=== PATIENT | male | born 1970 | race Caucasian/White ===

== ENCOUNTER 2020-05-02 12:16 | Emergency (ER) | payer OTHER ==
[~2020-05-02] VITALS: Ht 177.8 cm; Wt 124.7 kg
[2020-05-02] MEDS ORDERED: cloNIDine HCL 0.1 MG TAB PO ONE (12:45)
[2020-05-02 13:46] LABS: Eosinophils # (auto) 0.2 10 ^3/uL (0-0.8); Hemoglobin 18.3 g/dL (13.5-17.5); Nucleated Red Blood Cells % 0.2 %; White Blood Cell 7.1 10^3/uL (4.4-10.8)
[2020-05-02 13:48] LABS: Basophils # (auto) 0.1 10 ^3/uL (0-0.2); Basophils % (auto) 0.9 % (0.0-2.0); Hematocrit 53.6 % (41.0-53.0); Lymphocytes # (auto) 1.4 10 ^3/uL (0.4-5.4); Lymphocytes % (auto) 19.9 % (10.0-50.0); Mean Corpuscular Hemoglobin 28.7 pg (28.0-32.0); Mean Corpuscular Hgb Conc. 34.1 g/dL (32.0-36.0); Mean Corpuscular Volume 84.3 fL (80.0-100.0); Monocytes # (auto) 0.6 10 ^3/uL (0-1.3); Monocytes % (auto) 8.1 % (0.0-12.0); Neutrophils # (auto) 4.9 10 ^3/uL (1.6-8.6); Neutrophils % (auto) 68.1 % (37.0-80.0); Platelet Count (auto) 148 10^3/uL (140-450); Red Blood Cells 6.36 10^6/uL (4.5-5.90); Red Cell Distribution Width 14.2 % (11.8-14.3)
[2020-05-02 13:56] LABS: INR 1.11 (0.9-1.15); Partial Thromboplastin Time 30.7 sec (23.64-32.05)
[2020-05-02 13:59] LABS: Albumin 3.9 g/dL (3.4-5.0); Calcium 9.1 mg/dL (8.5-10.1); Magnesium 2.6 mg/dL (1.6-2.6); Potassium 4.2 mmol/L (3.5-5.1)
[2020-05-02 14:07] LABS: BUN/Creatinine Ratio 13.9; Bilirubin, Total 0.9 mg/dL (0.2-1.0); Total Protein 7.5 g/dL (6.4-8.2)
== END 2020-05-02 15:48 | disposition home or self-care (01) ==
LOC: ER 12:16 → EDBD 12:16 → ER 15:48
DX: I16.0 Hypertensive urgency (principal)
CPT/HCPCS: 36415; 71045; 80053; 83735; 83880; 84443; 84484; 85025; 85379; 85610; 85730

== ENCOUNTER 2023-12-05 18:05 | Inpatient (IN) | payer OTHER ==
[~2023-12-05] VITALS: Ht 185.4 cm; Wt 141.7 kg
[2023-12-05 18:05] VITALS: PULSE 99; RESP 22; O2SAT 99
[2023-12-05] MEDS: LORazepam 2MG/ML-1ML VIAL IV ONE (18:30)
[2023-12-05] MEDS: LORazepam 2MG/ML-1ML VIAL ONE (18:44)
[2023-12-05] MEDS: ETOMIDATE (2MG/ML) 20ML VIAL IV ONE ×2 (18:44→19:08)
[2023-12-05] MEDS: ROCURONIUM 10MG/ML 10ML VIAL IV ONE ×3 (18:45→21:27)
[2023-12-05 18:48] LABS: Basophils # (auto) 0 10 ^3/uL (0-0.2); Basophils % (auto) 0.5 % (0.0-2.0); Eosinophils # (auto) 0.2 10 ^3/uL (0-0.8); Eosinophils % (auto) 2.8 % (0.0-7.0); Hematocrit 44.6 % (41.0-53.0); Hemoglobin 14.9 g/dL (13.5-17.5); Lymphocytes # (auto) 1.9 10 ^3/uL (0.4-5.4); Lymphocytes % (auto) 26.8 % (10.0-50.0); Mean Corpuscular Hemoglobin 29.3 pg (28.0-32.0); Mean Corpuscular Hgb Conc. 33.3 g/dL (32.0-36.0); Mean Corpuscular Volume 87.9 fL (80.0-100.0); Monocytes # (auto) 0.5 10 ^3/uL (0-1.3); Neutrophils # (auto) 4.6 10 ^3/uL (1.6-8.6); Neutrophils % (auto) 62.9 % (37.0-80.0); Nucleated Red Blood Cells % 0.1 %; Red Blood Cells 5.08 10^6/uL (4.5-5.90); Red Cell Distribution Width 14.3 % (11.8-14.3); White Blood Cell 7.3 10^3/uL (4.4-10.8)
[2023-12-05] MEDS: MIDAZOLAM DRIP 50 mg/50mL 50 ML IV ONE (18:53)
[2023-12-05] MEDS: SODIUM CHLORIDE 0.9% 1,000 ML IV ONE (19:00)
[2023-12-05] MEDS: MIDAZOLAM DRIP 50 mg/50mL 50 ML IV SCH (19:05)
[2023-12-05 19:19] LABS: Amphetamine Screen, Urine Neg (NEGATIVE); Barbiturate Scree,Urine Neg (NEGATIVE); Benzodiazephine Screen, Urine Pos (NEGATIVE); Cannabinoid Screen, Urine Neg (NEGATIVE); Cocaine Screen, Urine Neg (NEGATIVE); Opiate Scree,Urine Neg (NEGATIVE); Phencyclidine Screen, Urine Neg (NEGATIVE)
[2023-12-05 19:27] LABS: Alanine Aminotransferase 28 U/L (7-40); Albumin 4.5 g/dL (3.2-4.8); Alkaline Phosphatase 68 U/L (46-116); Anion Gap 8 (5-15); Aspartate Aminotransferase 23 U/L (13-40); BUN/Creatinine Ratio 9.3 (10.0-20.0); Bilirubin, Total 0.7 mg/dL (0.2-1.0); Blood Alcohol 3.4 mg/dL (<10); Blood Urea Nitrogen 12 mg/dL (9-23); Calcium 9.1 mg/dL (8.5-10.1); Carbon Dioxide 22 mmol/L (20-30); Chloride 110 mmol/L (98-107); Glucose 112 mg/dL (74-106); Potassium 4.1 mmol/L (3.5-5.1); Sodium 140 mmol/L (136-145)
[2023-12-05 19:42] LABS: Magnesium 1.8 mg/dL (1.6-2.6)
[2023-12-05] MEDS: SUCCINYLCHOLINE CHLORIDE 20 MG/ML 10ML VIAL IV ONE (19:44)
[2023-12-05 19:45] VITALS: PULSE 102; O2SAT 88
[2023-12-05] MEDS: EPINEPHrine HCL 1 MG/10 ML SYRG ONE (19:58)
[2023-12-05] MEDS: NOREPINEPHRINE 8 MG/250ML KIT 250 ML IV ONE (20:06)
[2023-12-05 20:44] VITALS: BP 89/37; PULSE 92; RESP 30; O2SAT 85
[2023-12-05] MEDS: NOREPINEPHRINE 8 MG/250ML KIT 250 ML IV SCH (21:15)
[2023-12-05] MEDS: HEPARIN 1,000 UNITS/ml 1ML VIAL ONE (21:23)
[2023-12-05] MEDS: HEPARIN SODIUM (PORCINE) 5000 UNITS/ML 1ML VIAL IV ONE (21:30)
[2023-12-05 22:00] LABS: Base Excess -7.9 mmol/L (-2.0-2.0)
[2023-12-05 22:15] VITALS: BP 93/40; PULSE 78; RESP 24; O2SAT 95
[2023-12-05] MEDS: ACETAMINOPHEN IV 1000 MG/100ML (10MG/ML) IV ONE (23:17)
[2023-12-06] VITALS (108 sets, daily range): BP systolic 86–124; BP diastolic 38–69; PULSE 49–77; RESP 15–33; TEMP 97.9–101.5; O2SAT 92–100
[2023-12-06 00:14] LABS: Basophils # (auto) 0.1 10 ^3/uL (0-0.2); Basophils % (auto) 0.4 % (0.0-2.0); Eosinophils # (auto) 0 10 ^3/uL (0-0.8); Eosinophils % (auto) 0.2 % (0.0-7.0); Hemoglobin 14.5 g/dL (13.5-17.5); Mean Corpuscular Hemoglobin 28.5 pg (28.0-32.0); Mean Corpuscular Hgb Conc. 32.3 g/dL (32.0-36.0); Mean Corpuscular Volume 88.4 fL (80.0-100.0); Monocytes # (auto) 0.5 10 ^3/uL (0-1.3); Monocytes % (auto) 3.1 % (0.0-12.0); Neutrophils # (auto) 12.9 10 ^3/uL (1.6-8.6); Neutrophils % (auto) 83.3 % (37.0-80.0); Nucleated Red Blood Cells % 0.1 %; Red Blood Cells 5.09 10^6/uL (4.5-5.90); Red Cell Distribution Width 14.4 % (11.8-14.3); White Blood Cell 15.5 10^3/uL (4.4-10.8)
[2023-12-06] MEDS ORDERED: VASOPRESSIN 20 UNITS in SODIUM CHL 0.9% 99 ML IV SCH (00:45)
[2023-12-06] MEDS: PROPOFOL 100 ML IV SCH (00:55)
[2023-12-06] MEDS: PROPOFOL 100 ML IV ONE (01:05)
[2023-12-06] MEDS: PIPERACILLIN-TAZOB 3.375GM 100 ML IV ONE (01:56)
[2023-12-06 02:25] LABS: COVID19 ANTIGEN SOFIA FIA NEGATIVE (NEGATIVE)
[2023-12-06 02:26] LABS: Rapid Influenza A Negative (Negative); Rapid Influenza B Negative (Negative)
[2023-12-06] MEDS: VASOPRESSIN 20 UNITS in SODIUM CHL 0.9% 99 ML IV SCH (02:45)
[2023-12-06] MEDS: IBUPROFEN 100MG/5ML ORAL SUSP 100 MG/5 ML UD GT ONE (03:09)
[2023-12-06] MEDS ORDERED: ONDANSETRON HCL 4 MG/2 ML VIAL IV PRN (03:45)
[2023-12-06] MEDS ORDERED: MORPHINE SULFATE INJ 2 MG/ml SYRG IV PRN (03:45)
[2023-12-06] MEDS ORDERED: NITROGLYCERIN 0.4 MG SL TAB SL PRN (03:45)
[2023-12-06] MEDS ORDERED: LORazepam 2MG/ML-1ML VIAL IV PRN (03:45)
[2023-12-06 04:32] LABS: Basophils # (auto) 0 10 ^3/uL (0-0.2); Basophils % (auto) 0.1 % (0.0-2.0); Eosinophils # (auto) 0 10 ^3/uL (0-0.8); Eosinophils % (auto) 0.1 % (0.0-7.0); Hematocrit 42.4 % (41.0-53.0); Hemoglobin 14.2 g/dL (13.5-17.5); Lymphocytes # (auto) 1.6 10 ^3/uL (0.4-5.4); Lymphocytes % (auto) 7.6 % (10.0-50.0); Mean Corpuscular Hemoglobin 29.2 pg (28.0-32.0); Mean Corpuscular Hgb Conc. 33.5 g/dL (32.0-36.0); Mean Corpuscular Volume 87.2 fL (80.0-100.0); Monocytes # (auto) 1.3 10 ^3/uL (0-1.3); Monocytes % (auto) 6.3 % (0.0-12.0); Neutrophils # (auto) 17.7 10 ^3/uL (1.6-8.6); Neutrophils % (auto) 85.9 % (37.0-80.0); Nucleated Red Blood Cells % 0.1 %; Red Blood Cells 4.87 10^6/uL (4.5-5.90); Red Cell Distribution Width 14.2 % (11.8-14.3); White Blood Cell 20.5 10^3/uL (4.4-10.8)
[2023-12-06 05:20] LABS: Alanine Aminotransferase 78 U/L (7-40); Albumin 3.9 g/dL (3.2-4.8); Alkaline Phosphatase 62 U/L (46-116); Anion Gap 9 (5-15); Aspartate Aminotransferase 69 U/L (13-40); BUN/Creatinine Ratio 8.1 (10.0-20.0); Bilirubin, Total 1.2 mg/dL (0.2-1.0); Blood Urea Nitrogen 18 mg/dL (9-23); Carbon Dioxide 25 mmol/L (20-30); Chloride 107 mmol/L (98-107); Glucose 196 mg/dL (74-106); Potassium 4.3 mmol/L (3.5-5.1); Sodium 141 mmol/L (136-145); Total Protein 6.2 g/dL (5.7-8.2)
[2023-12-06 05:46] LABS: Calcium 8.2 mg/dL (8.7-10.4)
[2023-12-06] MEDS: cefTRIAXone 1GM/50ML D5W 50 ML IV SCH (05:55)
[2023-12-06] MEDS: SODIUM CHLOR 0.9% PF (SALINE LOCK) 10ML VIAL/SYR IV SCH (06:04)
[2023-12-06] MEDS: AZITHROMYCIN 500MG/ 250ML 250 ML IV SCH (06:46)
[2023-12-06] MEDS ORDERED: EPINEPHrine HCL 1 MG/10 ML SYRG IV ONE (07:25)
[2023-12-06] MEDS ORDERED: SODIUM BICARB 8.4% 50Meq/50ml SYR INJ IV ONE (07:25)
[2023-12-06 08:12] LABS: Base Excess -6.3 mmol/L (-2.0-2.0)
[2023-12-06] MEDS: HEPARIN SODIUM (PORCINE) 5000 UNITS/ML 1ML VIAL SC SCH (09:36)
[2023-12-06] MEDS: levETIRAcetam 1000 mg/100ml 100 ML IV SCH (09:40)
[2023-12-06] MEDS ORDERED: SODIUM CHLORIDE 0.9% 1,000 ML IV SCH (10:30)
[2023-12-06 10:40] LABS: Base Excess -6.5 mmol/L (-2.0-2.0)
[2023-12-06] MEDS: SODIUM CHLORIDE 0.9% 1,000 ML IV ONE ×2 (11:20→20:19)
[2023-12-06 11:24] LABS: Triglycerides 138 mg/dL (< 150)
[2023-12-06 11:25] LABS: LDL Cholesterol 51 mg/dL (< 100)
[2023-12-06 11:26] LABS: Cholesterol 85 mg/dL (< 200); HDL Cholesterol 27 mg/dL (40-59)
[2023-12-06] MEDS: SODIUM CHLORIDE 0.9% 1,000 ML IV SCH (13:20)
[2023-12-06] MEDS: NOREPINEPHRINE BITARTRATE 32 MG in SODIUM CHL 0.9% 218 ML IV SCH (13:20)
[2023-12-06] MEDS: fentaNYL Drip 2500mCg/250mlNS 250 ML IV SCH (13:31)
[2023-12-06] MEDS: DOXYCYCLINE 100MG/250ML 250 ML IV SCH (13:33)
[2023-12-06] MEDS: MEROPENEM 1GM IVPB 50 ML IV ONE (13:41)
[2023-12-06 16:52] LABS: Basophils # (auto) 0 10 ^3/uL (0-0.2); Basophils % (auto) 0.2 % (0.0-2.0); Eosinophils # (auto) 0 10 ^3/uL (0-0.8); Eosinophils % (auto) 0.1 % (0.0-7.0); Hematocrit 39.5 % (41.0-53.0); Lymphocytes # (auto) 1.8 10 ^3/uL (0.4-5.4); Lymphocytes % (auto) 9.5 % (10.0-50.0); Mean Corpuscular Hemoglobin 28.6 pg (28.0-32.0); Mean Corpuscular Volume 86.5 fL (80.0-100.0); Monocytes # (auto) 1.4 10 ^3/uL (0-1.3); Monocytes % (auto) 7.5 % (0.0-12.0); Neutrophils # (auto) 15.3 10 ^3/uL (1.6-8.6); Neutrophils % (auto) 82.7 % (37.0-80.0); Nucleated Red Blood Cells % 0.1 %; Red Blood Cells 4.57 10^6/uL (4.5-5.90); Red Cell Distribution Width 14.4 % (11.8-14.3); White Blood Cell 18.4 10^3/uL (4.4-10.8)
[2023-12-06] MEDS: EPINEPHrine HCL 250 ML IV SCH (16:55)
[2023-12-06 16:58] LABS: Alanine Aminotransferase 77 U/L (7-40); Albumin 3.6 g/dL (3.2-4.8); Alkaline Phosphatase 55 U/L (46-116); Anion Gap 6 (5-15); Aspartate Aminotransferase 162 U/L (13-40); BUN/Creatinine Ratio 13.6 (10.0-20.0); Blood Urea Nitrogen 23 mg/dL (9-23); Calcium 7.7 mg/dL (8.7-10.4); Carbon Dioxide 23 mmol/L (20-30); Chloride 109 mmol/L (98-107); Glucose 252 mg/dL (74-106); Potassium 4.3 mmol/L (3.5-5.1); Sodium 138 mmol/L (136-145)
[2023-12-06 16:59] LABS: Total Protein 5.7 g/dL (5.7-8.2)
[2023-12-06 17:02] LABS: Urine Bacteria FEW /hpf (None Seen); Urine Blood 3+ /uL (Negative); Urine Clarity CLOUDY (Clear); Urine Color Yellow (Yellow); Urine Hyaline Cast FEW /lpf (0 - 2); Urine Mucus FEW (None Seen); Urine Protein, UAD TRACE (Negative); Urine Specific Gravity 1.019 (1.001-1.035); Urine Urobilinogen Normal (Negative); Urine WBC <1 /hpf (0 - 3); Urine pH 5.5 (5.0-8.0)
[2023-12-06] MEDS: MEROPENEM 1GM IVPB 50 ML IV SCH (21:26)
[2023-12-07] VITALS (108 sets, daily range): BP systolic 91–234; BP diastolic 26–64; PULSE 56–75; RESP 7–25; TEMP 96.4–101.3; O2SAT 95–100
[2023-12-07 01:46] LABS: Hematocrit 38.9 % (41.0-53.0); Hemoglobin 12.8 g/dL (13.5-17.5)
[2023-12-07] MEDS: ACETAMINOPHEN 650 MG RECT SUPP PR PRN (01:52)
[2023-12-07 04:03] LABS: Basophils # (auto) 0 10 ^3/uL (0-0.2); Basophils % (auto) 0.3 % (0.0-2.0); Eosinophils # (auto) 0 10 ^3/uL (0-0.8); Eosinophils % (auto) 0.3 % (0.0-7.0); Hematocrit 36.2 % (41.0-53.0); Hemoglobin 12.1 g/dL (13.5-17.5); Lymphocytes # (auto) 1.7 10 ^3/uL (0.4-5.4); Lymphocytes % (auto) 11.9 % (10.0-50.0); Mean Corpuscular Hemoglobin 29.3 pg (28.0-32.0); Mean Corpuscular Hgb Conc. 33.4 g/dL (32.0-36.0); Mean Corpuscular Volume 87.7 fL (80.0-100.0); Monocytes # (auto) 1.2 10 ^3/uL (0-1.3); Monocytes % (auto) 8.5 % (0.0-12.0); Neutrophils # (auto) 11.5 10 ^3/uL (1.6-8.6); Red Blood Cells 4.13 10^6/uL (4.5-5.90); Red Cell Distribution Width 14.2 % (11.8-14.3); White Blood Cell 14.6 10^3/uL (4.4-10.8)
[2023-12-07 04:12] LABS: Alanine Aminotransferase 82 U/L (7-40); Albumin 3.7 g/dL (3.2-4.8); Alkaline Phosphatase 59 U/L (46-116); Anion Gap 7 (5-15); Aspartate Aminotransferase 192 U/L (13-40); BUN/Creatinine Ratio 13.6 (10.0-20.0); Blood Urea Nitrogen 22 mg/dL (9-23); Calcium 7.6 mg/dL (8.5-10.1); Carbon Dioxide 22 mmol/L (20-30); Chloride 109 mmol/L (98-107); Cholesterol 66 mg/dL (< 200); Glucose 253 mg/dL (74-106); HDL Cholesterol 25 mg/dL (40-59); LDL Cholesterol 26 mg/dL (< 100); Potassium 4.2 mmol/L (3.5-5.1); Sodium 138 mmol/L (136-145); Triglycerides 138 mg/dL (< 150)
[2023-12-07 04:13] LABS: Bilirubin, Total 0.9 mg/dL (0.2-1.0); Total Protein 5.8 g/dL (5.7-8.2)
[2023-12-07 04:17] LABS: INR 1.29 (0.9-1.15); Partial Thromboplastin Time 27.5 SEC (24.5-34.5); Prothrombin Time 13.3 sec (9.3-11.8)
[2023-12-07 05:20] LABS: Magnesium 1.7 mg/dL (1.6-2.6)
[2023-12-07 08:07] LABS: Base Excess -6.9 mmol/L (-2.0-2.0)
[2023-12-07 09:17] LABS: Phosphorus 2.9 mg/dL (2.4-5.1)
[2023-12-07] MEDS: MAGNESIUM SULFATE 1GM/100ML 100 ML IV ONE (10:08)
[2023-12-07] MEDS: PANTOPRAZOLE 40 MG/10 ML VIAL INJ IV SCH (10:09)
[2023-12-07] MEDS: FUROSEMIDE 40 MG/4 ML VIAL IV ONE (10:09)
[2023-12-07] MEDS: IBUPROFEN 100MG/5ML ORAL SUSP 100 MG/5 ML UD GT PRN (15:23)
[2023-12-07] MEDS: MEROPENEM 1GM IVPB 50 ML IV SCH (17:57)
[2023-12-08] VITALS (111 sets, daily range): BP systolic 96–222; BP diastolic 28–217; PULSE 53–70; RESP 0–25; TEMP 98.4–99.7; O2SAT 96–100
[2023-12-08 04:11] LABS: Basophils # (auto) 0 10 ^3/uL (0-0.2); Basophils % (auto) 0.3 % (0.0-2.0); Eosinophils # (auto) 0.2 10 ^3/uL (0-0.8); Eosinophils % (auto) 1.9 % (0.0-7.0); Hematocrit 30.7 % (41.0-53.0); Hemoglobin 10.6 g/dL (13.5-17.5); Lymphocytes # (auto) 1.2 10 ^3/uL (0.4-5.4); Lymphocytes % (auto) 12.9 % (10.0-50.0); Mean Corpuscular Hgb Conc. 34.5 g/dL (32.0-36.0); Monocytes # (auto) 0.6 10 ^3/uL (0-1.3); Neutrophils # (auto) 7.1 10 ^3/uL (1.6-8.6); Neutrophils % (auto) 77.9 % (37.0-80.0); Red Blood Cells 3.52 10^6/uL (4.5-5.90); Red Cell Distribution Width 14.4 % (11.8-14.3); White Blood Cell 9.1 10^3/uL (4.4-10.8)
[2023-12-08 04:24] LABS: Alanine Aminotransferase 70 U/L (7-40); Albumin 3.1 g/dL (3.2-4.8); Alkaline Phosphatase 56 U/L (46-116); Anion Gap 2 (5-15); Aspartate Aminotransferase 163 U/L (13-40); BUN/Creatinine Ratio 13.7 (10.0-20.0); Blood Urea Nitrogen 16 mg/dL (9-23); Calcium 8.2 mg/dL (8.7-10.4); Carbon Dioxide 28 mmol/L (20-30); Chloride 112 mmol/L (98-107); Glucose 171 mg/dL (74-106); Magnesium 1.8 mg/dL (1.6-2.6); Potassium 3.9 mmol/L (3.5-5.1); Sodium 142 mmol/L (136-145)
[2023-12-08 04:25] LABS: Bilirubin, Total 1.1 mg/dL (0.2-1.0); Total Protein 5.1 g/dL (5.7-8.2)
[2023-12-08 07:01] LABS: Base Excess -0.5 mmol/L (-2.0-2.0)
[2023-12-08] MEDS: MAGNESIUM SULFATE 1GM/100ML 100 ML IV ONE (09:16)
[2023-12-08 10:45] LABS: Urine Bacteria NONE SEEN /hpf (None Seen); Urine Blood 2+ /uL (Negative); Urine Clarity CLOUDY (Clear); Urine Color Yellow (Yellow); Urine Protein, UAD TRACE (Negative); Urine Specific Gravity 1.017 (1.001-1.035); Urine Urobilinogen Normal (Negative); Urine WBC 5 /hpf (0 - 3); Urine pH 5.5 (5.0-8.0)
[2023-12-08] MEDS: SODIUM CHLORIDE 0.9% 1,000 ML IV SCH (15:11)
[2023-12-08] MEDS: FUROSEMIDE 40 MG/4 ML VIAL IV ONE (15:11)
[2023-12-09] VITALS (96 sets, daily range): BP systolic 93–134; BP diastolic 41–66; PULSE 49–65; RESP 21–26; TEMP 98.6–100.6; O2SAT 96–100
[2023-12-09 04:12] LABS: Basophils # (auto) 0 10 ^3/uL (0-0.2); Basophils % (auto) 0.4 % (0.0-2.0); Eosinophils # (auto) 0.1 10 ^3/uL (0-0.8); Eosinophils % (auto) 2.2 % (0.0-7.0); Hemoglobin 9.1 g/dL (13.5-17.5); Lymphocytes % (auto) 15.3 % (10.0-50.0); Mean Corpuscular Hemoglobin 29.7 pg (28.0-32.0); Mean Corpuscular Hgb Conc. 33.9 g/dL (32.0-36.0); Mean Corpuscular Volume 87.5 fL (80.0-100.0); Monocytes # (auto) 0.4 10 ^3/uL (0-1.3); Neutrophils # (auto) 5.1 10 ^3/uL (1.6-8.6); Neutrophils % (auto) 76.1 % (37.0-80.0); Nucleated Red Blood Cells % 0.1 %; Red Blood Cells 3.08 10^6/uL (4.5-5.90); Red Cell Distribution Width 14.1 % (11.8-14.3); White Blood Cell 6.7 10^3/uL (4.4-10.8)
[2023-12-09 04:33] LABS: Alanine Aminotransferase 56 U/L (7-40); Albumin 2.8 g/dL (3.2-4.8); Alkaline Phosphatase 53 U/L (46-116); Anion Gap 3 (5-15); Aspartate Aminotransferase 126 U/L (13-40); BUN/Creatinine Ratio 17.2 (10.0-20.0); Blood Urea Nitrogen 20 mg/dL (9-23); Calcium 8.4 mg/dL (8.7-10.4); Carbon Dioxide 28 mmol/L (20-30); Chloride 113 mmol/L (98-107); Glucose 116 mg/dL (74-106); Potassium 3.7 mmol/L (3.5-5.1); Sodium 144 mmol/L (136-145)
[2023-12-09 04:34] LABS: Bilirubin, Total 0.8 mg/dL (0.2-1.0); Total Protein 4.6 g/dL (5.7-8.2)
[2023-12-09 07:11] LABS: Base Excess -0.2 mmol/L (-2.0-2.0)
[2023-12-09] MEDS: FUROSEMIDE 40 MG/4 ML VIAL IV ONE (15:02)
[2023-12-10] VITALS (93 sets, daily range): BP systolic 122–208; BP diastolic 54–104; PULSE 52–98; RESP 13–33; TEMP 97.9–100.8; O2SAT 92–100
[2023-12-10 04:28] LABS: Basophils # (auto) 0 10 ^3/uL (0-0.2); Basophils % (auto) 0.3 % (0.0-2.0); Eosinophils # (auto) 0.1 10 ^3/uL (0-0.8); Hematocrit 28.3 % (41.0-53.0); Hemoglobin 9.6 g/dL (13.5-17.5); Lymphocytes # (auto) 0.8 10 ^3/uL (0.4-5.4); Lymphocytes % (auto) 12.6 % (10.0-50.0); Mean Corpuscular Volume 88.2 fL (80.0-100.0); Monocytes # (auto) 0.5 10 ^3/uL (0-1.3); Monocytes % (auto) 8.2 % (0.0-12.0); Neutrophils % (auto) 76.9 % (37.0-80.0); Red Blood Cells 3.21 10^6/uL (4.5-5.90); Red Cell Distribution Width 14.2 % (11.8-14.3); White Blood Cell 6.5 10^3/uL (4.4-10.8)
[2023-12-10 04:38] LABS: Alanine Aminotransferase 53 U/L (7-40); Alkaline Phosphatase 59 U/L (46-116); Anion Gap 3 (5-15); Aspartate Aminotransferase 106 U/L (13-40); BUN/Creatinine Ratio 21.6 (10.0-20.0); Blood Urea Nitrogen 22 mg/dL (9-23); Calcium 8.6 mg/dL (8.7-10.4); Carbon Dioxide 27 mmol/L (20-30); Chloride 114 mmol/L (98-107); Glucose 94 mg/dL (74-106); Potassium 3.3 mmol/L (3.5-5.1); Sodium 144 mmol/L (136-145)
[2023-12-10 04:39] LABS: Albumin 3.1 g/dL (3.2-4.8); Bilirubin, Total 0.8 mg/dL (0.2-1.0)
[2023-12-10 07:08] LABS: Base Excess -1.6 mmol/L (-2.0-2.0)
[2023-12-10] MEDS: POTASSIUM CHL 20MEQ/100ML 100 ML IV ONE (14:05)
[2023-12-10] MEDS: hydrALAZINE HCL 20 MG/ML VL IV PRN (22:03)
[2023-12-11] VITALS (71 sets, daily range): BP systolic 123–193; BP diastolic 11–116; PULSE 49–104; RESP 14–33; TEMP 99.1–100.6; O2SAT 85–100
[2023-12-11] MEDS ORDERED: ETOMIDATE (2MG/ML) 20ML VIAL IV ONE (02:15)
[2023-12-11] MEDS ORDERED: SUCCINYLCHOLINE CHLORIDE 20 MG/ML 10ML VIAL IV ONE (02:15)
[2023-12-11 03:57] LABS: Basophils # (auto) 0 10 ^3/uL (0-0.2); Basophils % (auto) 0.4 % (0.0-2.0); Eosinophils # (auto) 0.1 10 ^3/uL (0-0.8); Eosinophils % (auto) 1.5 % (0.0-7.0); Hematocrit 31.2 % (41.0-53.0); Hemoglobin 10.8 g/dL (13.5-17.5); Lymphocytes # (auto) 0.7 10 ^3/uL (0.4-5.4); Lymphocytes % (auto) 10.4 % (10.0-50.0); Mean Corpuscular Hemoglobin 29.9 pg (28.0-32.0); Mean Corpuscular Hgb Conc. 34.6 g/dL (32.0-36.0); Mean Corpuscular Volume 86.4 fL (80.0-100.0); Monocytes # (auto) 0.6 10 ^3/uL (0-1.3); Monocytes % (auto) 8.4 % (0.0-12.0); Neutrophils # (auto) 5.4 10 ^3/uL (1.6-8.6); Neutrophils % (auto) 79.3 % (37.0-80.0); Red Blood Cells 3.61 10^6/uL (4.5-5.90); Red Cell Distribution Width 13.8 % (11.8-14.3); White Blood Cell 6.8 10^3/uL (4.4-10.8)
[2023-12-11 04:14] LABS: Alanine Aminotransferase 53 U/L (7-40); Albumin 3.2 g/dL (3.2-4.8); Alkaline Phosphatase 63 U/L (46-116); Anion Gap 7 (5-15); Aspartate Aminotransferase 94 U/L (13-40); BUN/Creatinine Ratio 29.3 (10.0-20.0); Blood Urea Nitrogen 24 mg/dL (9-23); Carbon Dioxide 26 mmol/L (20-30); Chloride 113 mmol/L (98-107); Glucose 114 mg/dL (74-106); Potassium 3.6 mmol/L (3.5-5.1); Sodium 146 mmol/L (136-145)
[2023-12-11 04:15] LABS: Bilirubin, Total 0.9 mg/dL (0.2-1.0); Total Protein 5.3 g/dL (5.7-8.2)
[2023-12-11 08:58] LABS: Base Excess 0.9 mmol/L (-2.0-2.0)
[2023-12-11] MEDS: FUROSEMIDE 40 MG/4 ML VIAL ONE (09:10)
[2023-12-11] MEDS: FUROSEMIDE 40 MG/4 ML VIAL IV ONE (09:30)
[2023-12-11] MEDS ORDERED: LORazepam 2MG/ML-1ML VIAL IV PRN (11:15)
[2023-12-11] MEDS: ENOXAPARIN SOD 40 MG/0.4 ML SYRINGE SC ONE (16:30)
[2023-12-12] VITALS (30 sets, daily range): BP systolic 100–167; BP diastolic 43–101; PULSE 56–88; RESP 13–23; TEMP 98–99.3; O2SAT 95–100
[2023-12-12 03:27] LABS: Basophils # (auto) 0 10 ^3/uL (0-0.2); Basophils % (auto) 0.4 % (0.0-2.0); Eosinophils # (auto) 0.1 10 ^3/uL (0-0.8); Eosinophils % (auto) 1.6 % (0.0-7.0); Hemoglobin 11.3 g/dL (13.5-17.5); Lymphocytes # (auto) 0.9 10 ^3/uL (0.4-5.4); Lymphocytes % (auto) 12.5 % (10.0-50.0); Mean Corpuscular Hemoglobin 29.7 pg (28.0-32.0); Mean Corpuscular Hgb Conc. 34.3 g/dL (32.0-36.0); Mean Corpuscular Volume 86.6 fL (80.0-100.0); Monocytes # (auto) 0.6 10 ^3/uL (0-1.3); Monocytes % (auto) 8.9 % (0.0-12.0); Neutrophils # (auto) 5.5 10 ^3/uL (1.6-8.6); Neutrophils % (auto) 76.6 % (37.0-80.0); Red Blood Cells 3.81 10^6/uL (4.5-5.90); Red Cell Distribution Width 13.9 % (11.8-14.3); White Blood Cell 7.1 10^3/uL (4.4-10.8)
[2023-12-12 03:35] LABS: Chloride 113 mmol/L (98-107); Potassium 3.5 mmol/L (3.5-5.1); Sodium 146 mmol/L (136-145)
[2023-12-12 03:36] LABS: Anion Gap 6 (5-15); Calcium 9.1 mg/dL (8.7-10.4); Carbon Dioxide 27 mmol/L (20-30)
[2023-12-12 03:41] LABS: BUN/Creatinine Ratio 28.8 (10.0-20.0); Blood Urea Nitrogen 23 mg/dL (9-23); Glucose 123 mg/dL (74-106)
[2023-12-12] MEDS: ENOXAPARIN SOD 40 MG/0.4 ML SYRINGE SC SCH (10:10)
[2023-12-12] MEDS: D5W/SOD CHL 0.45% 1,000 ML IV SCH (14:45)
[2023-12-12] MEDS: levETIRAcetam 1000 mg/100ml 100 ML IV SCH (22:02)
[2023-12-13] VITALS (27 sets, daily range): BP systolic 121–165; BP diastolic 67–90; PULSE 53–78; RESP 14–27; TEMP 97.9–98.4; O2SAT 95–100
[2023-12-13] MEDS ORDERED: DOCUSATE SOD 100 MG CAP PO PRN (09:30)
[2023-12-13 10:03] LABS: Basophils # (auto) 0 10 ^3/uL (0-0.2); Basophils % (auto) 0.6 % (0.0-2.0); Eosinophils # (auto) 0.2 10 ^3/uL (0-0.8); Eosinophils % (auto) 2.8 % (0.0-7.0); Hematocrit 36.9 % (41.0-53.0); Hemoglobin 12.4 g/dL (13.5-17.5); Lymphocytes # (auto) 1.3 10 ^3/uL (0.4-5.4); Lymphocytes % (auto) 20.5 % (10.0-50.0); Mean Corpuscular Hgb Conc. 33.7 g/dL (32.0-36.0); Monocytes # (auto) 0.4 10 ^3/uL (0-1.3); Monocytes % (auto) 6.6 % (0.0-12.0); Neutrophils # (auto) 4.3 10 ^3/uL (1.6-8.6); Neutrophils % (auto) 69.5 % (37.0-80.0); Nucleated Red Blood Cells % 0.1 %; Red Blood Cells 4.29 10^6/uL (4.5-5.90); Red Cell Distribution Width 13.8 % (11.8-14.3); White Blood Cell 6.2 10^3/uL (4.4-10.8)
[2023-12-13 10:19] LABS: Alanine Aminotransferase 73 U/L (7-40); Albumin 3.5 g/dL (3.2-4.8); Alkaline Phosphatase 72 U/L (46-116); Anion Gap 3 (5-15); Aspartate Aminotransferase 93 U/L (13-40); BUN/Creatinine Ratio 26.8 (10.0-20.0); Bilirubin, Total 1.2 mg/dL (0.2-1.0); Blood Urea Nitrogen 22 mg/dL (9-23); Calcium 8.8 mg/dL (8.5-10.1); Carbon Dioxide 27 mmol/L (20-30); Chloride 114 mmol/L (98-107); Glucose 111 mg/dL (74-106); Potassium 4.5 mmol/L (3.5-5.1); Sodium 144 mmol/L (136-145); Total Protein 5.5 g/dL (5.7-8.2)
[2023-12-13 10:33] LABS: Magnesium 1.9 mg/dL (1.6-2.6)
[2023-12-13 11:16] LABS: Platelet Estimate Adequate; RBC Morphology Normal
[2023-12-13] MEDS ORDERED: ARTIFICIAL TEARS 15ml EACHEYE PRN (18:00)
[2023-12-14 05:00] VITALS: BP_SYST 101; BP_SYST 134; BP_DIAS 65; BP_DIAS 78; PULSE 66; PULSE 71; RESP 17; TEMP 97.6; O2SAT 96; O2SAT 98
[2023-12-14 08:00] VITALS: PULSE 66
[2023-12-14 09:00] VITALS: BP 136/81; PULSE 66; RESP 20; TEMP 98.8; O2SAT 93
[2023-12-14 13:00] VITALS: BP 136/77; PULSE 67; RESP 18; TEMP 98.7; O2SAT 95
[2023-12-14 17:00] VITALS: BP 126/81; PULSE 63; RESP 18; TEMP 99.2; O2SAT 94
[2023-12-14] MEDS: levETIRAcetam 500 MG TAB PO SCH (21:40)
[2023-12-14] MEDS: DOXYCYCLINE 100 MG TAB/CAP PO SCH (21:40)
[2023-12-14 22:00] VITALS: BP 142/83; PULSE 65; RESP 19; TEMP 99; O2SAT 93
[2023-12-15 05:00] VITALS: BP 149/89; PULSE 66; RESP 18; TEMP 97.9; O2SAT 92
[2023-12-15 08:15] VITALS: PULSE 70
[2023-12-15 09:16] VITALS: BP 139/75; PULSE 72; RESP 19; TEMP 98.7; O2SAT 95
[2023-12-15] MEDS ORDERED: LEVE100012 PO (11:38)
[2023-12-15 12:19] VITALS: BP 132/84; PULSE 69; RESP 20; TEMP 99; O2SAT 100
[2023-12-15 12:33] VITALS: BP 132/84; PULSE 69; RESP 20; TEMP 99; O2SAT 100
[2023-12-15] MEDS ORDERED: MUPI2CRE17 EX (13:24)
== END 2023-12-15 12:55 | disposition home or self-care (01) | DRG 870 ==
LOC: ER 18:05 → EDBD 18:05 → TELE 12-06 03:41 → ICU WEST 12-06 04:01 → DOU IN ICU 12-12 11:38 → TELE-WESTW 12-13 16:14
PROVIDERS: ADMIT Nurse Practitioner Family; ATTEND Internal Medicine Geriatric Medicine
PROC: 5A1955Z Respiratory Ventilation, Greater than 96 Consecutive Hours (ICD-10-PCS; principal; 2023-12-06)
PROC: 0BH17EZ Insertion of Endotracheal Airway into Trachea, Via Natural or Artificial Opening (ICD-10-PCS; 2023-12-06)
PROC: 5A12012 Performance of Cardiac Output, Single, Manual (ICD-10-PCS; 2023-12-06)
PROC: 02HV33Z Insertion of Infusion Device into Superior Vena Cava, Percutaneous Approach (ICD-10-PCS; 2023-12-06)
PROC: B548ZZA Ultrasonography of Superior Vena Cava, Guidance (ICD-10-PCS; 2023-12-06)
PROC: 03HY32Z Insertion of Monitoring Device into Upper Artery, Percutaneous Approach (ICD-10-PCS; 2023-12-06)
DX: A41.9 Sepsis, unspecified organism (principal); R65.21 Severe sepsis with septic shock; I46.9 Cardiac arrest, cause unspecified; J96.01 Acute respiratory failure with hypoxia; I21.9 Acute myocardial infarction, unspecified; J69.0 Pneumonitis due to inhalation of food and vomit; N17.0 Acute kidney failure with tubular necrosis; G93.1 Anoxic brain damage, not elsewhere classified; M62.82 Rhabdomyolysis; Z68.41 Body mass index [BMI] 40.0-44.9, adult; I50.30 Unspecified diastolic (congestive) heart failure; E87.4 Mixed disorder of acid-base balance; I11.0 Hypertensive heart disease with heart failure; E78.5 Hyperlipidemia, unspecified; I25.10 Atherosclerotic heart disease of native coronary artery without angina pectoris; E66.01 Morbid (severe) obesity due to excess calories; E86.0 Dehydration; G47.30 Sleep apnea, unspecified; G40.409 Other generalized epilepsy and epileptic syndromes, not intractable, without status epilepticus; Z99.81 Dependence on supplemental oxygen; Z95.5 Presence of coronary angioplasty implant and graft; Z82.49 Family history of ischemic heart disease and other diseases of the circulatory system
CPT/HCPCS: 31500; 36415; 36556; 36600; 70450; 70496; 71045; 71250; 73060; 74176; 80048; 80053; 80061; 80307; 80320; 81001; 82140; 82550; 82805; 82962; 83036; 83735; 84100; 84443; 84484; 85014; 85018; 85025; 85610; 85730; 86850; 86900; 86901; 87040; 87070; 87081; 87086; 87205; 87426; 87804; 92507; 92610; 93005; 93306; 94002; 94003; 95819; 96365; 97110; 97116; 97163; 97530; 99152; 99153; C9113; G0378; J0131; J0171; J0330; J2185; J2250; J2405; J2543; J2704; J3480; J3490; J7060